=== PATIENT | female | born 1985 ===

== ENCOUNTER 2018-04-17 09:14 | Day surgery (SDC) | payer OTHER ==
[2018-04-17] VITALS (15 sets, daily range): BP systolic 111–129; BP diastolic 63–90
[~2018-04-17] VITALS: Ht 165.1 cm; Wt 74.8 kg
--- NOTE | 2018-04-17 07:14 | Pre-Procedure Note/Attestation ---
Pre-Procedure Note/Attestation Complete Prior to Procedure Planned Procedure: left Procedure Narrative: knee arthroscopy, possible menisectomy Indications for Procedure Pre-Operative Diagnosis: left knee medial menisecus tear Attestation I attest that I discussed the nature of the procedure; its benefits; risks and complications; and alternatives (and the risks and benefits of such alternatives ), prior to the procedure, with the patient (or the patient's legal service support representative). I attest that, if there was a reasonable possibility of needing a blood transfusion, the patient (or the patient's legal service support representative) was given the [facility] standardized written summary, pursuant to the Nayan Max Blood Safety Act ([place] Health and Safety Code # 1645, as amended). I attest that I re-evaluated the patient just prior to the surgery and that there has been no change in the patient's H&P, except as documented below: Dayday Richard MD Apr 17, 2018 07:14
--- NOTE | 2018-04-17 07:14 | Operative Note - PDOC ---
Operative Note Operative Note Pre-op Diagnosis: left knee medial menisecus tear Procedure: see op report Post-op Diagnosis: same as pre-op plus Operative Findings: consistent w/pre-op dx studies Anesthesia: general Specimen: none Complications: none Condition: unstable Estimated Blood Loss: none Implant(s) used?: No Dayday Richard MD Apr 17, 2018 07:14
[~2018-04-17 09:14] MED LIST: D5 1/2NS 1,000 ML IV SCH; HYDROmorphone 1mg/ml Carpuject SUBQ PRN; Norco 5mg/325mg tab ORAL PRN; Tylenol #3 tab (300mg/30mg) ORAL PRN; ceFAZolin 1gm IVPB IVPB ONE; celeBREX 200mg Cap **SURGERY PATIENTS ONLY ORAL ONE; oxyCONTIN 20mg tab ORAL ONE
[2018-04-17] MEDS ORDERED: oxyCONTIN 20mg tab ORAL ONE (09:53)
[2018-04-17] MEDS ORDERED: NKM (10:12)
[2018-04-17] MEDS ORDERED: Ketorolac 30mg Inj ONE ×2 (10:45→11:11)
[2018-04-17] MEDS ORDERED: Morphine Sulfate PF 10 ML ONE (10:45)
[2018-04-17] MEDS ORDERED: Lidocaine 1% 10mg/ml/Epi 0.005mg/ml 30ml vial INJ ONE (10:45)
[2018-04-17] MEDS ORDERED: Kenalog-40 1ml Vial ONE (10:45)
[2018-04-17] MEDS ORDERED: Bupivacaine 0.5% Inj 30 ml vial INJ ONE (10:45)
[2018-04-17] MEDS ORDERED: Bupivacaine w/Epi 0.25% 30ml Vial INJ ONE (10:46)
[2018-04-17] MEDS ORDERED: Midazolam 2mg/2ml Inj ONE (10:59)
[2018-04-17] MEDS ORDERED: NS Irrig 4000ml IRRIG ONE (11:00)
[2018-04-17] MEDS ORDERED: fentaNYL 100 mcg/2 mL IV ONE (11:10)
[2018-04-17] MEDS ORDERED: Lidocaine 1% MPF 10mg/ml 5ml ONE (11:11)
[2018-04-17] MEDS ORDERED: Metoclopramide 10mg/2ml Inj ONE (11:11)
[2018-04-17] MEDS ORDERED: Propofol 200mg/20ml IV ONE (11:11)
[2018-04-17] MEDS ORDERED: fentaNYL 100 mcg/2 mL IV PRN (11:45)
[2018-04-17] MEDS ORDERED: Metoclopramide 10mg/2ml Inj IVP PRN (11:45)
--- NOTE | 2018-04-17 11:58 | Anethesia Preoperative Eval ---
Anesthesia Pre-op PMH/ROS General Date of Evaluation: Apr 17, 2018 Time of Evaluation: 10:50 Anesthesiologist: anthony ASA Score: ASA 1 Mallampati Score Class I : Soft palate, uvula, fauces, pillars visible Class II: Soft palate, uvula, fauces visible Class III: Soft palate, base of uvula visible Class IV: Only hard plate visible Mallampati Classification: Class II Surgeon: galen Diagnosis: left knee pain Surgical Procedure: knee arthroscopy Anesthesia History: none Family History: no anesthesia problems Allergies: Coded Allergies: SULFA (SULFONAMIDE ANTIBIOTICS) (Verified Allergy, Unknown, 04/16/18) Medications: see eMAR Patient NPO?: Yes NPO Date: Apr 16, 2018 NPO Time: 23:59 Past Medical History Cardiovascular: Denies: HTN, CAD, SD, valve dz, arrhythmia, other Pulmonary: Denies: asthma, COPD, FRIEDA, other Gastrointestinal/Genitourinary: Denies: GERD, CRI, ESRD, other Neurologic/Psychiatric: Denies: dementia, CVA, depression/anxiety, TIA, other Endocrine: Denies: DM, hypothyroidism, steroids, other HEENT: Denies: cataract (L), cataract (R), glaucoma, LA JOLLA (L), LA JOLLA (R), other Hematology/Immune: Denies: anemia, DVT, bleeding disorder, other PSxH Narrative: lap cristi Anesthesia Pre-op Phys. Exam Physician Exam Last Vital Signs Date Time Temp Pulse Resp B/P (MAP) Pulse Ox O2 Delivery O2 Flow Rate FiO2 04/17/18 10:16 Room Air 04/17/18 10:01 97.7 87 18 122/74 99 Constitutional: NAD Neurologic: CN 2-12 intact Cardiovascular: RRR Respiratory: CTA Gastrointestinal: S/NT/ND Airway Exam Mallampati Classification 2 Mallampati Score: Class II MO: full Neck: normal ROM: full Dentures: no upper, no lower Anesthesia Pre-op A/P Labs Urine Test Test 04/17/18 09:25 Urine HCG, Qualitative Negative (NEGATIVE) Studies Pre-op Studies: EKG - sr Risk Assessment & Plan Plan: general lma Pre-Antibiotics Drug: ancef Given Within 1 Hr of Incision: Yes Time Given: 11:00 Ann Ardon CRNA Apr 17, 2018 11:58
--- NOTE | 2018-04-17 12:00 | Immediate Post-Op Evaluation ---
Immediate Post-Op Evalulation Immediate Post-Op Evalulation Procedure: left knee arthroscopy Date of Evaluation: Apr 17, 2018 Time of Evaluation: 11:59 IV Fluids: 500 Blood Pressure Systolic: 127 Blood Pressure Diastolic: 90 Pulse Rate: 100 Respiratory Rate: 14 O2 Sat by Pulse Oximetry: 98 Temperature (Fahrenheit): 98.8 Pain Score (1-10): 0 Nausea: No Vomiting: No Complications none Patient Status: awake, reacts, patent Hydration Status: adequate Drug: ancef Given Within 1 Hr of Incision: Yes Time Given: 11:10 Ann Ardon CRNA Apr 17, 2018 12:00
--- NOTE | 2018-04-17 13:17 | 48 Hour Post Anesthesia Eval ---
Post Anesthesia Evaluation Procedure: left knee arthroscopy Date of Evaluation: Apr 17, 2018 Time of Evaluation: 13:17 Blood Pressure Systolic: 117 0: 70 Pulse Rate: 90 Respiratory Rate: 14 O2 Sat by Pulse Oximetry: 98 Airway: patent Nausea: No Vomiting: No Hydration Status: adequate Cardiopulmonary Status: stable Mental Status/LOC: patient returned to baseline Post-Anesthesia Complications: none Follow-up care needed: N/A Ann Ardon CRNA Apr 17, 2018 13:17
--- NOTE | 2018-04-17 19:32 | Operative Note - Dictated ---
DATE OF OPERATION: 04/17/2018 PREOPERATIVE DIAGNOSIS: Left knee internal derangement with medial meniscus tear. POSTOPERATIVE DIAGNOSIS: Left knee symptomatic medial plica. PROCEDURES: 1. Left knee diagnostic arthroscopy. 2. Left knee excision of medial plica/patellar fat pad. SURGEON: Dayday Richard M.D. ANESTHESIA: MAC. INDICATION FOR PROCEDURE: The patient is a pleasant female, who has had progressive left knee pain. She had MRI, which showed a possible meniscal tear. She failed conservative treatment and elected to undergo left knee diagnostic arthroscopy with possible medial meniscectomy. Risks, limitations, expectations, and complications of procedure were discussed in detail. All questions addressed. DESCRIPTION OF PROCEDURE: After informed consent was obtained, the patient was brought to the operating room. The patient was placed under general anesthesia. Tourniquet was applied to the left proximal thigh. Left leg was prepped and draped in a sterile manner. Time-out was performed. Inferolateral stab incision was then made. Trocar was introduced into the knee joint. Of note, there is hypertrophic fat pad in the synovial tissue in the patellofemoral compartment. There is seemed to be a symptomatic medial plica. Camera was placed in the medial compartment. It was very difficult to visualize the medial compartment. The femoral condyle notch was entered. Medial working portal was established. Using the fat pad, some of the medial plica was performed. The ACL was probed and noted to be intact. Lateral compartment was entered and free of meniscal chondral damage. Medial compartment was then entered. The meniscus was probed to ensure there is no meniscal pathology. There is no chondral damage. At this point, attention was turned back into the patellofemoral compartment and excision of the remaining aspect of medial plica was completed. Once that was done, the instruments were removed. Portal sites were closed using 3-0 Monocryl sutures. Steri-Strips and a sterile dressing were applied. The patient was awoken and taken to recovery room with stable vital signs. ESTIMATED BLOOD LOSS: None. COMPLICATIONS: None. SPECIMENS: None. IMPLANTS: None. Dayday Richard M.D. DR: YOSHI JOB#: [id number] CC:
[2018-04-17] MEDS ORDERED: D5 1/2NS 1,000 ML IV SCH (21:01)
[2018-04-17] MEDS ORDERED: HYDROmorphone 1mg/ml Carpuject SUBQ PRN (21:01)
[2018-04-17] MEDS ORDERED: Tylenol #3 tab (300mg/30mg) ORAL PRN (21:01)
[2018-04-17] MEDS ORDERED: Norco 5mg/325mg tab ORAL PRN (21:01)
== END 2018-04-17 18:15 | disposition home or self-care (01) ==
LOC: SUR 09:14
DX: M67.52 Plica syndrome, left knee (principal); Z88.2 Allergy status to sulfonamides
CPT/HCPCS: 29875; 81025; J0690; J1885; J2250; J2274; J2405; J2704; J2765; J3010; J3301; J3490; 94003; 94150